=== PATIENT | male | born 1965 | race Two or more races ===

== ENCOUNTER 2024-10-09 15:06 | Emergency (ER) | payer OTHER ==
[~2024-10-09] VITALS: Ht 172.7 cm; Wt 88.5 kg
[2024-10-09] MEDS ORDERED: HYZAAR 100-251 EACH (16:01)
[2024-10-09] MEDS ORDERED: ASPIRIN 325 MG TABLET.EC PO ONE ×2 (16:45→17:20)
[2024-10-09] MEDS ORDERED: FAMOtidine 10 MG/ML (4ML VIAL) IV ONE (16:45)
[2024-10-09] MEDS ORDERED: FAMOTIDINE/PF 20 MG/2 ML VIAL ONE ×2 (17:20)
[2024-10-09 17:58] LABS: HEMATOCRIT 46.2 % (39.0-48.0); HEMOGLOBIN 16.2 g/dL (13-16.00); MEAN CELL VOLUME 92.2 fL (80.0-100.00); MEAN CORPUSCULAR HEMOGLOBIN 32.4 pg (27.00-32.0); MEAN CORPUSCULAR HGB CONC 35.1 g/dl (32.0-36.0); PLATELET COUNT 210 K/uL (150-450); RED BLOOD COUNT 5.01 M/uL (4.00-6.00)
[2024-10-09 18:14] LABS: INR 1.1; PARTIAL THROMBOPLASTIN TIME 28.8 SECONDS (22.0-34.0); PROTHROMBIN TIME 11.9 SECONDS (9.0-11.5)
[2024-10-09 18:22] LABS: ALBUMIN 3.7 gm/dL (3.4-5.0); BILIRUBIN TOTAL 1.53 mg/dL (0.3-1.2); CALCIUM 9.6 mg/dL (8.5-10.1); CREATININE SERUM 1.2 mg/dL (0.70-1.30); GFR 61.97; GLOBULINA 4.3 G/DL (2.4-3.5); POTASSIUM 4.72 mEq/L (3.5-5.1)
[2024-10-09 19:22] LABS: PH,URINE 5.5 (5.0-8.0); URINE APPEARANCE Clear; URINE BILIRRUBIN Negative (NEGATIVE); URINE BLOOD Negative; URINE COLOR Yellow; URINE GLUCOSE Negative (NEGATIVE); URINE KETONE Negative (NEGATIVE); URINE LEUKOCYTE Negative; URINE NITRATE Negative; URINE PROTEIN Negative (NEGATIVE)
[2024-10-09 19:23] LABS: URINE BACTERIA 7.3 uL (0.0-1933); URINE WBC 5.3 uL (0.0-23.2)
[2024-10-09 19:33] LABS: URINE CAST 0.14 uL (0.0-1.40); URINE EPITHELIAL CELLS 0.7 uL (0.0-38.8)
[2024-10-09] MEDS ORDERED: PEPCID AC20 MG PO (22:52)
== END 2024-10-09 22:59 | disposition home or self-care (01) ==
LOC: ER 15:09
PROVIDERS: General Practice
DX: R07.89 Other chest pain (principal); K59.00 Constipation, unspecified
CPT/HCPCS: 36415; 71045; 74240; 93005; 96365; 99283; J3490

== ENCOUNTER 2024-10-16 10:37 | Outpatient (CLI) | payer OTHER ==
[~2024-10-16 10:37] MED LIST: HYZAAR 100-251 EACH; PEPCID AC20 MG PO
== END 2024-10-16 10:44 | disposition home or self-care (01) ==
LOC: RAD 10:37
PROVIDERS: ATTEND General Practice
DX: Z12.11 Encounter for screening for malignant neoplasm of colon (principal); Z12.5 Encounter for screening for malignant neoplasm of prostate; Z11.3 Encounter for screening for infections with a predominantly sexual mode of transmission; Z13.1 Encounter for screening for diabetes mellitus; Z13.220 Encounter for screening for lipoid disorders; Z13.29 Encounter for screening for other suspected endocrine disorder; Z13.0 Encounter for screening for diseases of the blood and blood-forming organs and certain disorders involving the immune mechanism

== ENCOUNTER 2024-10-25 07:15 | Outpatient (CLI) | payer OTHER | END 2024-10-25 07:20 | disposition home or self-care (01) | LOC: SONOGRAMA 07:15 | PROVIDERS: ATTEND General Practice | DX: R10.9 Unspecified abdominal pain (principal); Z12.11 Encounter for screening for malignant neoplasm of colon; Z12.5 Encounter for screening for malignant neoplasm of prostate; Z11.3 Encounter for screening for infections with a predominantly sexual mode of transmission; Z13.1 Encounter for screening for diabetes mellitus; Z13.220 Encounter for screening for lipoid disorders; Z13.29 Encounter for screening for other suspected endocrine disorder; Z13.0 Encounter for screening for diseases of the blood and blood-forming organs and certain disorders involving the immune mechanism ==

== ENCOUNTER → 2024-11-02 06:49 | Outpatient (CLI) | payer OTHER ==
[2024-11-02 08:01] LABS: HEMATOCRIT 45.5 % (39.0-48.0); HEMOGLOBIN 15.9 g/dL (13-16.00); MEAN CELL VOLUME 92.4 fL (80.0-100.00); MEAN CORPUSCULAR HEMOGLOBIN 32.3 pg (27.00-32.0); PLATELET COUNT 208 K/uL (150-450); RED BLOOD COUNT 4.92 M/uL (4.00-6.00); RED CELL DISTRIBUTION WIDTH 13.4 % (11.5-14.5)
[2024-11-02 08:08] LABS: URINE APPEARANCE Clear; URINE BILIRRUBIN Negative (NEGATIVE); URINE BLOOD Negative; URINE COLOR Dark Yellow; URINE GLUCOSE Negative (NEGATIVE); URINE KETONE Negative (NEGATIVE); URINE LEUKOCYTE Negative; URINE NITRATE Negative; URINE PROTEIN Negative (NEGATIVE)
[2024-11-02 08:10] LABS: ERYTHROCYTE SEDIMENTATION RATE 6 mm/hr
[2024-11-02 08:12] LABS: URINE BACTERIA 19.5 uL (0.0-1933); URINE EPITHELIAL CELLS 1.7 uL (0.0-38.8); URINE WBC 2.5 uL (0.0-23.2)
[2024-11-02 08:30] LABS: ALBUMIN 3.4 gm/dL (3.4-5.0); BILIRUBIN TOTAL 1.55 mg/dL (0.3-1.2); BILIRUBIN,CONJUGATED 0.56 mg/dL (0.0-0.2); BILIRUBIN,UNCONJUGATED 0.99 mg/dL (0.0-0.6); TOTAL PROTEIN 7.4 gm/dL (6.4-8.2)
[2024-11-02 08:33] LABS: URINE CAST 0.29 uL (0.0-1.40); URINE RBC 0.5 uL (0.0-20.8)
[2024-11-04 16:06] LABS: hcv q 3620000 IU/mL (.); log 10 6.559 (.)
== END | disposition home or self-care (01) ==
LOC: LAB 06:49
PROVIDERS: ATTEND General Practice
DX: B18.2 Chronic viral hepatitis C (principal); K70.0 Alcoholic fatty liver; N28.1 Cyst of kidney, acquired; D72.819 Decreased white blood cell count, unspecified; E80.6 Other disorders of bilirubin metabolism; K59.00 Constipation, unspecified

== ENCOUNTER → 2024-11-02 | Outpatient (CLI) | payer OTHER | END | disposition home or self-care (01) | LOC: TOM 07:07 | DX: R16.0 Hepatomegaly, not elsewhere classified (principal); K76.0 Fatty (change of) liver, not elsewhere classified; B19.20 Unspecified viral hepatitis C without hepatic coma ==

== ENCOUNTER 2024-12-12 09:50 | Outpatient (CLI) | payer OTHER | END 2024-12-12 09:56 | disposition home or self-care (01) | LOC: SONOGRAMA 09:50 | PROVIDERS: ATTEND General Practice | DX: K76.0 Fatty (change of) liver, not elsewhere classified (principal); K59.00 Constipation, unspecified; E80.6 Other disorders of bilirubin metabolism; D72.819 Decreased white blood cell count, unspecified; N28.1 Cyst of kidney, acquired; K70.0 Alcoholic fatty liver; B18.2 Chronic viral hepatitis C ==

== ENCOUNTER 2025-02-06 07:04 | Outpatient (CLI) | payer OTHER ==
[2025-02-06 07:49] LABS: URINE APPEARANCE Clear; URINE BILIRRUBIN Negative (NEGATIVE); URINE BLOOD Negative; URINE COLOR Yellow; URINE GLUCOSE Negative (NEGATIVE); URINE KETONE Negative (NEGATIVE); URINE LEUKOCYTE Trace; URINE NITRATE Negative; URINE PROTEIN Negative (NEGATIVE)
[2025-02-06 07:53] LABS: URINE BACTERIA 15.8 uL (0.0-1933)
[2025-02-06 08:06] LABS: INR 1.07; PARTIAL THROMBOPLASTIN TIME 29.3 SECONDS (22.0-34.0); PROTHROMBIN TIME 11.6 SECONDS (9.0-11.5)
[2025-02-06 08:12] LABS: URINE CAST 0.29 uL (0.0-1.40); URINE EPITHELIAL CELLS 0.9 uL (0.0-38.8); URINE RBC 1.6 uL (0.0-20.8)
== END 2025-02-06 14:23 | disposition home or self-care (01) ==
LOC: LAB 07:04
PROVIDERS: ATTEND Urology
DX: N40.0 Benign prostatic hyperplasia without lower urinary tract symptoms (principal); R30.0 Dysuria; B18.2 Chronic viral hepatitis C